=== PATIENT | female | born 1950 ===

== ENCOUNTER 2017-07-03 14:01 | Observation (INO) | payer MEDICARE, MEDICAID ==
--- NOTE | 2017-07-03 15:48 | RAD ---
PROCEDURE: CHEST RADIOGRAPH, 1 VIEW HISTORY: chest pain COMPARISON: 12/04/2016 FINDINGS: LUNGS: Clear. PLEURA: No pneumothorax or pleural fluid seen. CARDIOVASCULAR: Normal. OSSEOUS STRUCTURES: No significant abnormalities. VISUALIZED UPPER ABDOMEN: Normal. OTHER FINDINGS: None. IMPRESSION: No active disease.
[2017-07-03 15:51] LABS: BASO % 0.5 % (0.0-2.0); EOS # 0.1 K/uL (0.0-0.7); EOS % 2.2 % (0.0-4.0); HEMOGLOBIN 10.7 g/dL (11.0-16.0); LYMPH # 2.5 K/uL (1.0-4.3); LYMPH % 40.4 % (20.0-40.0); MEAN CELL VOLUME 87.5 fL (81.0-99.0); MEAN CORPUSCULAR HEMOGLOBIN 30.6 pg (27.0-31.0); MEAN CORPUSCULAR HGB CONC 34.9 g/dL (33.0-37.0); MEAN PLATELET VOLUME 6.9 fL (7.2-11.7); MONO # 0.6 K/uL (0.0-0.8); MONO % 10.4 % (0.0-10.0); NEUT # 2.9 K/uL (1.8-7.0); NEUT % 46.5 % (50.0-75.0); NRBC % 0.1 % (0.0-2.0); RBC 3.49 Mil/uL (3.80-5.20); RED CELL DISTRIBUTION WIDTH 14.4 % (11.5-14.5); WHITE BLOOD COUNT 6.2 K/uL (4.8-10.8)
[2017-07-03 16:05] LABS: ALB/GLOB RATIO 1.3 (1.0-2.1); ALBUMIN 4.1 g/dL (3.5-5.0); ALT/SGPT 22 U/L (9-52); AST/SGOT 23 U/L (14-36); BLOOD UREA NITROGEN 15 mg/dL (7-17); CALCIUM 9.2 mg/dl (8.6-10.4); GFR AFRICAN-AMERICAN > 60; GFR NON-AFRICAN AMERICAN > 60
--- NOTE | 2017-07-03 16:31 | C.PDOC ---
History Of Present Illness 67 y/o female presents to ED c/o chest pain described as tightness and non- radiating since noon today. Pt states that her blood sugar level was elevated around 241 2 days ago. Denies nasal congestion, palpitation, diaphoresis, abdominal pain, n/v/d, leg swelling/pain, or fever. Chief Complaint (Nursing): Chest Pain History Per: Patient History/Exam Limitations: no limitations Past Medical History Reviewed: Historical Data, Nursing Documentation, Vital Signs Vital Signs: Last Vital Signs Temp 98 F 07/03/17 20:21 Pulse 76 07/03/17 20:21 Resp 20 07/03/17 20:21 BP 120/62 07/03/17 20:21 Pulse Ox 100 07/03/17 20:21 - Medical History PMH: Arthritis, HTN, Hypercholesterolemia, Kidney Stones, Chronic Kidney Disease Surgical History: Family History: States: Unknown Family Hx - Social History Hx Alcohol Use: No Hx Substance Use: No - Immunization History Hx Tetanus Toxoid Vaccination: No Hx Influenza Vaccination: No Hx Pneumococcal Vaccination: No Review Of Systems Except As Marked, All Systems Reviewed And Found Negative. Constitutional: Negative for: Fever, Chills Cardiovascular: Positive for: Chest Pain. Negative for: Palpitations, Edema, Light Headedness Respiratory: Negative for: Cough, Shortness of Breath Gastrointestinal: Negative for: Nausea, Vomiting, Abdominal Pain, Diarrhea Genitourinary: Negative for: Dysuria, Frequency, Hematuria Musculoskeletal: Negative for: Back Pain Physical Exam - Physical Exam Appears: Non-toxic, No Acute Distress Skin: Normal Color, Warm, Dry Head: Atraumatic, Normacephalic Eye(s): bilateral: Normal Inspection Oral Mucosa: Moist Cardiovascular: Rhythm Regular Respiratory: Normal Breath Sounds, No Rales, No Rhonchi, No Wheezing Gastrointestinal/Abdominal: Soft, No Tenderness Extremity: Normal ROM, No Pedal Edema Neurological/Psych: Oriented x3, Normal Speech ED Course And Treatment - Laboratory Results Result Diagrams: 07/03/17 15:43 07/03/17 15:43 ECG: Interpreted By Me, Viewed By Me ECG Rhythm: Sinus Rhythm Interpretation Of ECG: T wave flattening in inferior lateral leads. Normal axis. Rate From EC (bpm) O2 Sat by Pulse Oximetry: 100 (RA) Pulse Ox Interpretation: Normal Medical Decision Making Medical Decision Making: Case discussed with Dr. Vazquez, and Dr. goode. Disposition - Disposition Disposition: HOSPITALIZED Disposition Time: 16:50 Condition: STABLE - Clinical Impression Clinical Impression: Chest pain - Scribe Statement The provider has reviewed the documentation as recorded by the Giovanaibe Eduin Moeller All medical record entries made by the Giovanaibe were at my direction and personally dictated by me. I have reviewed the chart and agree that the record accurately reflects my personal performance of the history, physical exam, medical decision making, and the department course for this patient. I have also personally directed, reviewed, and agree with the discharge instructions and disposition.
[2017-07-03] MEDS ORDERED: Potassium Chloride 20 mEq ER Tab PO ONE (18:24)
[2017-07-03] MEDS: Potassium Chloride 20 mEq ER Tab PO SCH (18:27)
[2017-07-03] MEDS ORDERED: Ergocalciferol 50,000 Intl Units Cap PO SCH (21:45)
[2017-07-03] MEDS ORDERED: Insulin Detemir 100 units/ml Vial (Levemir) SC SCH (22:00)
[2017-07-03] MEDS ORDERED: Aluminum Hydroxide/Magnesium Hydroxide Susp (30 mL) PO ONE (22:15)
--- NOTE | 2017-07-03 22:50 | CP.PCM.HP ---
History of Present Illness - History of Present Illness History of Present Illness: 67 year old female who has had recurrent chest pain for the past 3 days is seen in the [facility] ER. Blood sugar elevated but no acute EKG changes. Patient admittted for evaluation. Past history of diabetes mellitus, renal calculi, hypertension and degenerative arthritis. Present on Admission - Present on Admission Any Indicators Present on Admission: No History of DVT/PE: No History of Uncontrolled Diabetes: No Urinary Catheter: No Decubitus Ulcer Present: No History Surgical Site Infection Following: None Review of Systems - Cardiovascular Cardiovascular: Chest Pain, Palpitations - Respiratory Respiratory: Dyspnea on Exertion - Gastrointestinal Gastrointestinal: Constipation - Reproductive: Female Reproductive:Female: Post Menopausal - Musculoskeletal Musculoskeletal: Arthralgias - Integumentary Integumentary: Dry Skin Past Patient History - Infectious Disease Hx of Infectious Diseases: None - Tetanus Immunizations Tetanus Immunization: Up to Date - Past Medical History & Family History Past Medical History?: Yes - Past Social History Smoking Status: Former Smoker Chewing Tobacco Use: No Cigar Use: No Alcohol: None Drugs: Denies - CARDIAC Hx Hypercholesterolemia: Yes Hx Hypertension: Yes - PULMONARY Hx Asthma: Yes - NEUROLOGICAL Hx Dizziness: Yes - RENAL Hx Chronic Kidney Disease: Yes Hx Kidney Stones: Yes - ENDOCRINE/METABOLIC Hx Diabetes Mellitus Type 2: Yes - MUSCULOSKELETAL/RHEUMATOLOGICAL Hx Arthritis: Yes Hx Osteoarthritis: Yes - GASTROINTESTINAL Hx Gastrointestinal Disorders: Yes Hx Constipation: Yes Hx Gastroesophageal Reflux: Yes - GENITOURINARY/GYNECOLOGICAL Hx Uterine Cancer: No Hx Urinary Tract Infection: Yes : 3 - PSYCHIATRIC Hx Anxiety: Yes Hx Emotional Abuse: No Hx Paranoia: No Hx Post Traumatic Stress Disorder: No Hx Physical Abuse: No Hx Substance Use: No - SURGICAL HISTORY Hx Surgeries: Yes Hx Section: Yes (2) Hx Cholecystectomy: Yes Hx Musculoskeletal Surgery: Yes (Right knee replacement) Other/Comment: Carpal tunnel - ANESTHESIA Hx Anesthesia: Yes Hx Anesthesia Reactions: No Meds Allergies/Adverse Reactions: Allergies Allergy/AdvReac Type Severity Reaction Status Date / Time No Known Allergies Allergy Verified 07/03/17 14:14 Physical Exam - Constitutional Appears: No Acute Distress - Head Exam Head Exam: NORMOCEPHALIC - Eye Exam Eye Exam: Normal appearance Pupil Exam: NORMAL ACCOMODATION - ENT Exam ENT Exam: Normal Exam - Neck Exam Neck exam: Positive for: Normal Inspection - Respiratory Exam Respiratory Exam: NORMAL BREATHING PATTERN - Cardiovascular Exam Cardiovascular Exam: REGULAR RHYTHM - GI/Abdominal Exam GI & Abdominal Exam: Normal Bowel Sounds - Rectal Exam Rectal Exam: Deferred - Exam External exam: NORMAL EXTERNAL EXAM - Extremities Exam Extremities exam: Positive for: normal inspection - Back Exam Back exam: NORMAL INSPECTION - Neurological Exam Neurological exam: Oriented x3 - Psychiatric Exam Psychiatric exam: Anxious - Skin Skin Exam: Dry Results - Vital Signs Recent Vital Signs: Last Vital Signs Temp 98 F 07/03/17 20:21 Pulse 76 07/03/17 20:21 Resp 20 07/03/17 20:21 BP 120/62 07/03/17 20:21 Pulse Ox 100 07/03/17 20:58 - Labs Result Diagrams: 07/03/17 15:43 07/03/17 15:43 Labs: Laboratory Results - last 24 hr 07/03/17 07/03/17 07/03/17 15:43 15:43 21:13 WBC 6.2 D RBC 3.49 L Hgb 10.7 L Hct 30.5 L MCV 87.5 D MCH 30.6 MCHC 34.9 RDW 14.4 Plt Count 301 MPV 6.9 L Neut % (Auto) 46.5 L Lymph % (Auto) 40.4 H Jasper % (Auto) 10.4 H Eos % (Auto) 2.2 Baso % (Auto) 0.5 Neut # (Auto) 2.9 Lymph # (Auto) 2.5 Jasper # (Auto) 0.6 Eos # (Auto) 0.1 Baso # (Auto) 0.0 Sodium 131 L Potassium 3.2 L Chloride 92 L Carbon Dioxide 26 Anion Gap 16 BUN 15 Creatinine 0.5 L Est GFR ( Amer) > 60 Est GFR (Non-Af Amer) > 60 POC Glucose (mg/dL) 129 H Random Glucose 131 H Calcium 9.2 Total Bilirubin 0.4 AST 23 ALT 22 Alkaline Phosphatase 87 Troponin I < 0.0120 Total Protein 7.3 Albumin 4.1 Globulin 3.1 Albumin/Globulin Ratio 1.3 Assessment & Plan (1) Diabetes mellitus Status: Acute (2) Degenerative joint disease Status: Acute (3) Hypertension Status: Acute (4) Chest pain Status: Acute
[2017-07-04 08:27] LABS: HEMOGLOBIN 10.4 g/dL (11.0-16.0); MEAN CELL VOLUME 87.2 fL (81.0-99.0); MEAN CORPUSCULAR HEMOGLOBIN 30.6 pg (27.0-31.0); MEAN CORPUSCULAR HGB CONC 35.1 g/dL (33.0-37.0); MEAN PLATELET VOLUME 7.4 fL (7.2-11.7); RBC 3.38 Mil/uL (3.80-5.20); RED CELL DISTRIBUTION WIDTH 14.3 % (11.5-14.5); WHITE BLOOD COUNT 5.9 K/uL (4.8-10.8)
[2017-07-04 08:44] LABS: ALB/GLOB RATIO 1.3 (1.0-2.1); ALBUMIN 3.8 g/dL (3.5-5.0); ALT/SGPT 23 U/L (9-52); AST/SGOT 28 U/L (14-36); BLOOD UREA NITROGEN 13 mg/dL (7-17); CALCIUM 9.3 mg/dl (8.6-10.4); GFR AFRICAN-AMERICAN > 60; GFR NON-AFRICAN AMERICAN > 60
[2017-07-04 09:11] LABS: B-TYPE NATRIURETIC PEPTIDE 28.8 pg/mL (0-900); CK-MB 1.84 ng/mL (0.0-3.38)
[2017-07-04] MEDS ORDERED: LIRAGLUTIDE SC SCH (10:00)
[2017-07-04] MEDS ORDERED: Magnesium Oxide 400 mg Tab UD PO SCH (10:00)
[2017-07-04] MEDS ORDERED: Pantoprazole 40 mg EC Tab PO SCH (10:00)
[2017-07-04] MEDS ORDERED: Ergocalciferol 50,000 Intl Units Cap PO SCH (10:00)
[2017-07-04] MEDS ORDERED: Pneumococcal 23-Valent Vaccine IM ONE (10:00)
[2017-07-04] MEDS: Potassium Chloride 20 mEq ER Tab PO SCH (10:22)
--- NOTE | 2017-07-04 16:26 | CP.PCM.CON ---
History of Present Illness - History of Present Illness History of Present Illness: Asked to see pt by dr yun goode (covering his service). Pt having CP x 1 day. Pain is atypical. Started at rest and persisted all day without waxing or waning. pain radiated from left chest to left back. did not increase with movement. pt ruled out for SD. Ekg is sr with q waves in v1, v2. no st changes. Currently cp has resolved. Pt with known 40% mid LAD lesion on cath 2 years ago. Pt denies any associated sob, diaph, palp, dizziness, lh. Past Patient History - Infectious Disease Hx of Infectious Diseases: None - Tetanus Immunizations Tetanus Immunization: Up to Date - Past Medical History & Family History Past Medical History?: Yes - Past Social History Smoking Status: Former Smoker Chewing Tobacco Use: No Cigar Use: No Alcohol: None Drugs: Denies - CARDIAC Hx Hypercholesterolemia: Yes Hx Hypertension: Yes - PULMONARY Hx Asthma: Yes - NEUROLOGICAL Hx Dizziness: Yes - RENAL Hx Chronic Kidney Disease: Yes Hx Kidney Stones: Yes - ENDOCRINE/METABOLIC Hx Diabetes Mellitus Type 2: Yes - MUSCULOSKELETAL/RHEUMATOLOGICAL Hx Arthritis: Yes Hx Osteoarthritis: Yes - GASTROINTESTINAL Hx Gastrointestinal Disorders: Yes Hx Constipation: Yes Hx Gastroesophageal Reflux: Yes - GENITOURINARY/GYNECOLOGICAL Hx Uterine Cancer: No Hx Urinary Tract Infection: Yes : 3 - PSYCHIATRIC Hx Anxiety: Yes Hx Emotional Abuse: No Hx Paranoia: No Hx Post Traumatic Stress Disorder: No Hx Physical Abuse: No Hx Substance Use: No - SURGICAL HISTORY Hx Surgeries: Yes Hx Section: Yes (2) Hx Cholecystectomy: Yes Hx Musculoskeletal Surgery: Yes (Right knee replacement) Other/Comment: Carpal tunnel - ANESTHESIA Hx Anesthesia: Yes Hx Anesthesia Reactions: No Meds Allergies/Adverse Reactions: Allergies Allergy/AdvReac Type Severity Reaction Status Date / Time No Known Allergies Allergy Verified 07/03/17 14:14 - Medications Medications: Current Medications Allopurinol (Zyloprim) 300 mg PO DAILY [facility] Last Admin: 07/04/17 10:25 Dose: 300 mg Clopidogrel Bisulfate (Plavix) 75 mg PO DAILY [facility] Last Admin: 07/04/17 10:21 Dose: 75 mg Ergocalciferol (Drisdol 50,000 Intl Units Cap) 1 cap PO Q7D [facility] Last Admin: 07/04/17 10:21 Dose: 1 cap Ferrous Sulfate (Feosol) 325 mg PO DAILY [facility] Last Admin: 07/04/17 10:20 Dose: 325 mg Folic Acid (Folic Acid) 1 mg PO DAILY [facility] Last Admin: 07/04/17 10:22 Dose: 1 mg Glimepiride (Amaryl) 4 mg PO DAILY [facility] Last Admin: 07/04/17 10:23 Dose: 4 mg Heparin Sodium (Porcine) (Heparin) 5,000 units SC Q12 [facility] Last Admin: 07/04/17 10:23 Dose: 5,000 units Home Med (Liraglutide [Victoza 3-Jorge]) 8 mg SC DAILY [facility] Hydrochlorothiazide (Hydrodiuril) 25 mg PO DAILY [facility] Last Admin: 07/04/17 10:21 Dose: 25 mg Insulin Detemir (Levemir) 10 unit SC HS [facility] Last Admin: 07/03/17 22:23 Dose: 10 unit Losartan Potassium (Cozaar) 50 mg PO DAILY [facility] Last Admin: 07/04/17 10:22 Dose: 50 mg Magnesium Oxide (Mag-Ox) 400 mg PO DAILY [facility] Last Admin: 07/04/17 10:21 Dose: 400 mg Metformin HCl (Glucophage) 1,000 mg PO BID [facility] Last Admin: 07/04/17 10:21 Dose: 1,000 mg Pantoprazole Sodium (Protonix Ec Tab) 40 mg PO DAILY [facility] Last Admin: 07/04/17 10:22 Dose: 40 mg Potassium Chloride (K-Dur 20 Meq Er Tab) 20 meq PO DAILY [facility] Last Admin: 07/04/17 10:22 Dose: 20 meq Rosuvastatin Calcium (Crestor) 5 mg PO HS [facility] Last Admin: 07/03/17 22:23 Dose: 5 mg Ursodiol (Actigall) 300 mg PO BID [facility] Last Admin: 07/04/17 10:20 Dose: 300 mg Results - Vital Signs Recent Vital Signs: Last Vital Signs Temp 98 F 07/04/17 00:05 Pulse 74 07/04/17 10:19 Resp 20 07/04/17 00:05 BP 128/60 07/04/17 10:19 Pulse Ox 97 07/04/17 00:05 - Labs Result Diagrams: 07/04/17 08:13 07/04/17 08:13 Labs: Laboratory Results - last 24 hr 07/03/17 07/04/17 07/04/17 21:13 06:46 08:13 WBC 5.9 RBC 3.38 L Hgb 10.4 L Hct 29.5 L MCV 87.2 MCH 30.6 MCHC 35.1 RDW 14.3 Plt Count 281 MPV 7.4 Sodium Potassium Chloride Carbon Dioxide Anion Gap BUN Creatinine Est GFR ( Amer) Est GFR (Non-Af Amer) POC Glucose (mg/dL) 129 H 91 Random Glucose Calcium Total Bilirubin AST ALT Alkaline Phosphatase Total Creatine Kinase CK-MB (Mass) Troponin I NT-Pro-B Natriuret Pep Total Protein Albumin Globulin Albumin/Globulin Ratio 07/04/17 07/04/17 08:13 11:04 WBC RBC Hgb Hct MCV MCH MCHC RDW Plt Count MPV Sodium 134 Potassium 4.1 Chloride 94 L Carbon Dioxide 30 Anion Gap 14 BUN 13 Creatinine 0.6 L Est GFR ( Amer) > 60 Est GFR (Non-Af Amer) > 60 POC Glucose (mg/dL) 228 H Random Glucose 87 Calcium 9.3 Total Bilirubin 0.3 AST 28 ALT 23 Alkaline Phosphatase 70 Total Creatine Kinase 133 CK-MB (Mass) 1.84 Troponin I < 0.0120 NT-Pro-B Natriuret Pep 28.8 Total Protein 6.8 Albumin 3.8 Globulin 3.0 Albumin/Globulin Ratio 1.3 Assessment & Plan (1) Chest pain Status: Acute (2) Diabetes mellitus Status: Acute (3) Hypertension Status: Acute (4) CAD (coronary artery disease) Status: Acute - Assessment and Plan (Free Text) Plan: I DISCUSSED CASE WITH DR GOODE. PT MAY BE D/C TO HOME ON ASA,PLAVIX AND BB' S WHICH SHE HAS. SHE CAN F/U FOR STRESS TEST WITH DR GOODE OUT PT.
[2017-07-04 16:55] VITALS: BP 104/61; RESP 20; TEMP 98.4; O2SAT 98
[2017-07-04 18:18] VITALS: PULSE 72
--- NOTE | 2017-07-04 19:05 | CP.PCM.PN ---
Subjective - Date & Time of Evaluation Date of Evaluation: 07/04/17 Time of Evaluation: 15:35 - Subjective Subjective: Patient denies any chest pain today. No acute changes on EKG. No traponin elevations. Awaiting Cardiology evaluation. Objective - Vital Signs/Intake and Output Vital Signs (last 24 hours): Temp Pulse Resp BP Pulse Ox 98.4 F 72 20 104/61 98 07/04/17 16:51 07/04/17 17:20 07/04/17 16:51 07/04/17 16:51 07/04/17 16:51 Intake and Output: 07/04/17 07/05/17 18:59 06:59 Intake Total 680 Balance 680 - Labs Labs: 07/04/17 08:13 07/04/17 08:13 - Constitutional Appears: No Acute Distress - Head Exam Head Exam: NORMAL INSPECTION - Eye Exam Eye Exam: Normal appearance Pupil Exam: NORMAL ACCOMODATION - ENT Exam ENT Exam: Normal Exam - Neck Exam Neck Exam: Normal Inspection - Respiratory Exam Respiratory Exam: NORMAL BREATHING PATTERN - Cardiovascular Exam Cardiovascular Exam: REGULAR RHYTHM - GI/Abdominal Exam GI & Abdominal Exam: Normal Bowel Sounds - Rectal Exam Rectal Exam: Deferred - Exam Exam: NORMAL INSPECTION - Extremities Exam Extremities Exam: Normal Inspection - Back Exam Back Exam: NORMAL INSPECTION - Neurological Exam Neurological Exam: Oriented x3 - Psychiatric Exam Psychiatric exam: Anxious - Skin Skin Exam: Dry Assessment and Plan (1) Diabetes mellitus Status: Acute (2) Degenerative joint disease Status: Acute (3) Hypertension Status: Acute (4) Chest pain Status: Acute
[2017-07-05] MEDS ORDERED: ERGOCALCIFEROL 2000 UNIT PO SCH (10:00)
--- NOTE | 2017-07-06 12:48 | CARD ---
APPROVED REPORT EKG Measurement Heart [id number] 186P [id number] <Conclusion> Normal sinus rhythm Low voltage QRS Septal infarct, age undetermined Abnormal ECG
== END 2017-07-04 17:35 | disposition home or self-care (01) ==
LOC: C.ER 14:01 → C.9E 16:56 → C.5S 20:11
PROVIDERS: ADMIT Internal Medicine; ATTEND Internal Medicine
DX: R07.89 Other chest pain (principal); E11.65 Type 2 diabetes mellitus with hyperglycemia; E11.22 Type 2 diabetes mellitus with diabetic chronic kidney disease; I12.9 Hypertensive chronic kidney disease with stage 1 through stage 4 chronic kidney disease, or unspecified chronic kidney disease; K21.9 Gastro-esophageal reflux disease without esophagitis; M19.90 Unspecified osteoarthritis, unspecified site; N18.9 Chronic kidney disease, unspecified; J45.909 Unspecified asthma, uncomplicated; I25.9 Chronic ischemic heart disease, unspecified; E78.00 Pure hypercholesterolemia, unspecified; Z87.440 Personal history of urinary (tract) infections; Z87.442 Personal history of urinary calculi; Z87.891 Personal history of nicotine dependence; Z90.49 Acquired absence of other specified parts of digestive tract; Z96.651 Presence of right artificial knee joint
CPT/HCPCS: 36415; 71045; 80053; 82948; 83880; 84484; 85025; 85027; 90732; 99283; G0009; G0378; J1644